=== PATIENT | female | born 1965 | race Caucasian/White ===

== ENCOUNTER 2018-05-18 20:26 | Inpatient (IN) | payer OTHER ==
[2018-05-18] MEDS: IOHEXOL 350MG/ML 50 ML BTL (20:43)
[2018-05-18] MEDS: IOHEXOL 100 ML (20:43)
[2018-05-18] MEDS: SOD CHLORIDE 0.9% 100 ML (20:43)
[2018-05-18 21:02] LABS: ADD MAN DIFF? NO
[2018-05-18 21:04] LABS: BASOPHILS % 0.5 % (0.0-2.0); EOSINOPHILS # 0.1 10^3/ul (0.0-0.5); EOSINOPHILS % 1.1 % (0.0-7.0); HEMATOCRIT 35.5 % (37.0-47.0); HEMOGLOBIN 11.7 g/dl (12.0-16.0); LYMPHOCYTES # 2.4 10^3/ul (0.8-2.9); LYMPHOCYTES % 30.1 % (15.0-51.0); MEAN CORPUSCULAR HEMOGLOBIN 28.8 pg (29.0-33.0); MEAN CORPUSCULAR VOLUME 87.4 fl (82.0-101.0); MONOCYTE # 0.7 10^3/ul (0.3-0.9); NEUTROPHIL # 4.9 10^3/ul (1.6-7.5); NEUTROPHILS % 60.1 % (39.0-77.0); PLATELET COUNT 208 10^3/UL (140-415); RED BLOOD COUNT 4.06 10^6/ul (4.20-5.40); RED CELL DISTRIBUTION WIDTH 13.2 % (11.5-14.5)
[2018-05-18 21:04] LABS: WHITE BLOOD COUNT 8.1 10^3/ul (4.8-10.8)
[2018-05-18 21:23] LABS: INR 0.93; PROTIME 12.6 Sec (11.9-14.9)
[2018-05-18 21:24] LABS: ANION GAP 10 (5-13); BLOOD UREA NITROGEN 12 mg/dl (7-20); CALCIUM 8.4 mg/dl (8.4-10.2); CARBON DIOXIDE 28 mmol/L (21-31); CHLORIDE 102 mmol/L (97-110); CHOL/HDL RATIO 6.6 RATIO; CHOLESTEROL 205 mg/dl (100-200); CREATINE KINASE 59 IU/L (23-200); CREATININE 0.49 mg/dl (0.44-1.00); Estimated GFR > 60 mL/min (>60); GLUCOSE 137 mg/dl (70-220); HDL CHOLESTEROL 31 mg/dl (37-92); LDL CHOLESTEROL,CALCULATED 94 mg/dl; POTASSIUM 3.6 mmol/L (3.5-5.1); SODIUM 140 mmol/L (135-144); TRIGLYCERIDES 399 mg/dl (0-149)
[2018-05-18 21:26] LABS: ETHANOL < 10.0 mg/dl (0-0)
[2018-05-18 21:36] LABS: CK INDEX 1.2; CK-MB 0.71 ng/ml (0.0-2.4); TROPONIN-I < 0.012 ng/ml (0.000-0.120)
[2018-05-18 21:41] LABS: HEMOGLOBIN A1C 5.5 % (0-5.9)
[2018-05-18] MEDS: ASPIRIN 325 MG TAB PO (21:54)
[2018-05-18] MEDS ORDERED: ONDANSETRON 4 MG INJ IV (22:30)
[2018-05-18] MEDS ORDERED: ACETAMINOPHEN 325 MG TAB PO (22:30)
[2018-05-19 00:39] LABS: ADD UMIC NO; UR ASCORBIC ACID NEGATIVE (NEGATIVE); UR BILIRUBIN (Dip) NEGATIVE (NEGATIVE); UR BLOOD (Dip) NEGATIVE (NEGATIVE); UR CLARITY CLEAR (CLEAR); UR COLOR STRAW (YELLOW); UR GLUCOSE (Dip) NEGATIVE (NEGATIVE); UR KETONES (Dip) NEGATIVE (NEGATIVE); UR LEUKOCYTE ESTERASE (Dip) NEGATIVE Leu/ul (NEGATIVE); UR NITRITE (Dip) NEGATIVE (NEGATIVE); UR TOTAL PROTEIN (Dip) NEGATIVE (NEGATIVE); UR UROBILINOGEN (Dip) NEGATIVE (NEGATIVE)
[2018-05-19 01:01] LABS: AMPHETAMINE/METHAMPHETAMINE NEGATIVE (NEGATIVE); BARBITURATES NEGATIVE (NEGATIVE); BENZODIAZEPINES NEGATIVE (NEGATIVE); CANNABINOIDS NEGATIVE (NEGATIVE); COCAINE NEGATIVE (NEGATIVE); OPIATES NEGATIVE (NEGATIVE)
[2018-05-19] MEDS ORDERED: MECLIZINE 25 MG TAB PO (06:30)
[2018-05-19] MEDS ORDERED: NACL 0.9% 3 ML SYG IV (06:30)
[2018-05-19] MEDS ORDERED: ACETAMINOPHEN 325 MG TAB PO (06:30)
[2018-05-19] MEDS: ERGOCALCIFEROL 50,000 UNIT CAP PO ×2 (06:30→12:33)
[2018-05-19] MEDS ORDERED: ONDANSETRON 4 MG INJ IV (06:30)
[2018-05-19 06:54] LABS: ADD MAN DIFF? NO
[2018-05-19 06:56] LABS: WHITE BLOOD COUNT 6.2 10^3/ul (4.8-10.8)
[2018-05-19 06:56] LABS: BASOPHIL # 0.1 10^3/ul (0.0-0.1); BASOPHILS % 0.8 % (0.0-2.0); EOSINOPHILS # 0.1 10^3/ul (0.0-0.5); EOSINOPHILS % 1.9 % (0.0-7.0); HEMATOCRIT 39.2 % (37.0-47.0); HEMOGLOBIN 12.7 g/dl (12.0-16.0); LYMPHOCYTES # 2.2 10^3/ul (0.8-2.9); MEAN CORPUSCULAR HEMOGLOBIN 28.6 pg (29.0-33.0); MEAN CORPUSCULAR HGB CONC 32.4 g/dl (32.0-37.0); MEAN CORPUSCULAR VOLUME 88.3 fl (82.0-101.0); MEAN PLATELET VOLUME 11.2 fl (7.4-10.4); MONOCYTE # 0.5 10^3/ul (0.3-0.9); MONOCYTES % 8.8 % (0.0-11.0); NEUTROPHIL # 3.2 10^3/ul (1.6-7.5); NEUTROPHILS % 52.3 % (39.0-77.0); PLATELET COUNT 208 10^3/UL (140-415); RED BLOOD COUNT 4.44 10^6/ul (4.20-5.40); RED CELL DISTRIBUTION WIDTH 13.4 % (11.5-14.5)
[2018-05-19] MEDS: PANTOPRAZOLE (EC) 40 MG TAB PO ×2 (07:00→11:17)
[2018-05-19 07:20] LABS: ALANINE AMINOTRANSFERASE 46 IU/L (13-69); ALBUMIN 3.8 g/dl (3.3-4.9); ALBUMIN/GLOBULIN RATIO 1.18; ALKALINE PHOSPHATASE 109 IU/L (42-121); ANION GAP 6 (5-13); ASPARTATE AMINO TRANSFERASE 26 IU/L (15-46); BILIRUBIN,INDIRECT 0.4 mg/dl (0-1.1); BILIRUBIN,TOTAL 0.4 mg/dl (0.2-1.3); BLOOD UREA NITROGEN 11 mg/dl (7-20); CALCIUM 9.3 mg/dl (8.4-10.2); CARBON DIOXIDE 27 mmol/L (21-31); CHLORIDE 108 mmol/L (97-110); CREATININE 0.49 mg/dl (0.44-1.00); Estimated GFR > 60 mL/min (>60); GLUCOSE 111 mg/dl (70-220); MAGNESIUM 2.3 mg/dl (1.7-2.5); POTASSIUM 4.1 mmol/L (3.5-5.1); SODIUM 141 mmol/L (135-144)
[2018-05-19] MEDS: FUROSEMIDE 20 MG TAB PO ×2 (09:00→11:26)
[2018-05-19] MEDS: HYDROCHLOROTHIAZIDE 25 MG TAB PO ×2 (09:00→11:25)
[2018-05-19] MEDS: LOSARTAN 50 MG TAB PO ×2 (09:00→11:25)
[2018-05-19] MEDS: SERTRALINE 100 MG TAB PO ×2 (09:00→11:25)
[2018-05-19] MEDS: AMLODIPINE 10 MG TAB PO ×2 (09:00→11:17)
[2018-05-19] MEDS: ASPIRIN (EC) 81 MG TAB PO ×2 (09:00→11:25)
[2018-05-19] MEDS: TIOTROPIUM 18 MCG CAPSULE INHA DEV INH (09:00)
[2018-05-19] MEDS: ENOXAPARIN 40 MG/0.4 ML SYG SC (10:55)
[2018-05-19] MEDS: RANITIDINE 150 MG TAB PO (20:24)
[2018-05-19] MEDS: GABAPENTIN 100 MG CAP PO (20:24)
[2018-05-19] MEDS: traZODone 100 MG TAB PO (20:25)
[2018-05-20 05:39] LABS: ADD MAN DIFF? NO
[2018-05-20 05:47] LABS: BASOPHIL # 0.1 10^3/ul (0.0-0.1); BASOPHILS % 0.6 % (0.0-2.0); EOSINOPHILS # 0.1 10^3/ul (0.0-0.5); EOSINOPHILS % 0.6 % (0.0-7.0); HEMATOCRIT 41.1 % (37.0-47.0); HEMOGLOBIN 13.4 g/dl (12.0-16.0); LYMPHOCYTES # 2.3 10^3/ul (0.8-2.9); LYMPHOCYTES % 29.3 % (15.0-51.0); MEAN CORPUSCULAR HEMOGLOBIN 28.3 pg (29.0-33.0); MEAN CORPUSCULAR HGB CONC 32.6 g/dl (32.0-37.0); MEAN CORPUSCULAR VOLUME 86.9 fl (82.0-101.0); MEAN PLATELET VOLUME 11.4 fl (7.4-10.4); MONOCYTE # 0.5 10^3/ul (0.3-0.9); MONOCYTES % 5.7 % (0.0-11.0); NEUTROPHIL # 5.1 10^3/ul (1.6-7.5); NEUTROPHILS % 63.5 % (39.0-77.0); PLATELET COUNT 255 10^3/UL (140-415); RED BLOOD COUNT 4.73 10^6/ul (4.20-5.40); RED CELL DISTRIBUTION WIDTH 13.2 % (11.5-14.5)
[2018-05-20 06:02] LABS: ANION GAP 10 (5-13); BLOOD UREA NITROGEN 19 mg/dl (7-20); CALCIUM 9.6 mg/dl (8.4-10.2); CARBON DIOXIDE 30 mmol/L (21-31); CHLORIDE 99 mmol/L (97-110); CREATININE 0.69 mg/dl (0.44-1.00); Estimated GFR > 60 mL/min (>60); GLUCOSE 131 mg/dl (70-220); MAGNESIUM 2.2 mg/dl (1.7-2.5); PHOSPHORUS 5.1 mg/dl (2.5-4.9); SODIUM 139 mmol/L (135-144)
[2018-05-20] MEDS: PANTOPRAZOLE (EC) 40 MG TAB PO (06:04)
[2018-05-20 06:23] LABS: HEMOGLOBIN A1C 5.5 % (0-5.9)
[2018-05-20] MEDS: SERTRALINE 100 MG TAB PO (09:00)
[2018-05-20] MEDS: ASPIRIN (EC) 81 MG TAB PO (09:01)
[2018-05-20] MEDS: LOSARTAN 50 MG TAB PO (09:03)
[2018-05-20] MEDS: TIOTROPIUM 18 MCG CAPSULE INHA DEV INH (09:04)
[2018-05-20] MEDS: HYDROCHLOROTHIAZIDE 25 MG TAB PO (09:04)
[2018-05-20] MEDS: FUROSEMIDE 20 MG TAB PO (09:06)
[2018-05-20] MEDS: AMLODIPINE 10 MG TAB PO (09:06)
[2018-05-20] MEDS: ENOXAPARIN 40 MG/0.4 ML SYG SC (09:07)
[2018-05-20] MEDS: CLOPIDOGREL 75 MG TAB PO (16:14)
[2018-05-20] MEDS: INFLUENZA VIRUS VACCINE 0.5 ML (DISPENSING) IM* (16:16)
== END 2018-05-20 17:55 | disposition home or self-care (01) | DRG 69 ==
LOC: E/R 20:26 → 6WM 22:17
DX: G45.9 Transient cerebral ischemic attack, unspecified (principal); I69.354 Hemiplegia and hemiparesis following cerebral infarction affecting left non-dominant side; I16.1 Hypertensive emergency; I10 Essential (primary) hypertension; K21.9 Gastro-esophageal reflux disease without esophagitis; F32.9 Major depressive disorder, single episode, unspecified; R47.81 Slurred speech; R13.10 Dysphagia, unspecified
CPT/HCPCS: 36415; 70450; 70490; 70496; 70498; 70551; 71045; 80048; 80053; 80061; 80307; 81003; 82550; 82553; 82962; 83036; 83735; 84100; 84484; 85025; 85610; 85730; 90686; 92610; 93005; 93306; 97161; 99291